=== PATIENT | female | born 1975 | race Caucasian/White ===

== ENCOUNTER 2022-04-04 11:13 | Emergency (ER) | payer OTHER ==
[~2022-04-04] VITALS: Ht 154.9 cm; Wt 65.8 kg
[2022-04-04 11:28] VITALS: BP 110/69
[2022-04-04] MEDS ORDERED: IBUPROFEN 600 MG TABLET ONE (11:55)
[2022-04-04] MEDS ORDERED: IBUPROFEN 600 MG TABLET PO ONE (12:00)
--- NOTE | 2022-04-04 12:02 | NUR ---
MOTRIN 600MG PROVIDED TO PT, TAKEN WELL. PT ALSO REQUESTED FOR CRACKERS AND GIVEN TO PT W/ WATER.
--- NOTE | 2022-04-04 12:15 | NUR ---
X- RAY DONE AT BED SIDE
--- NOTE | 2022-04-04 12:49 | NUR ---
no pain noted
[2022-04-04] MEDS ORDERED: IBUP-1955 PO (13:29)
--- NOTE | 2022-04-04 13:30 | NUR ---
d/c instraction given to pt fully and verblzed uncdestood no swallen on rt ankle
== END 2022-04-04 13:41 | disposition home or self-care (01) ==
LOC: ER 11:16
DX: M79.671 Pain in right foot (principal); Z90.89 Acquired absence of other organs; Z98.890 Other specified postprocedural states
CPT/HCPCS: 73610-TC; 73630-TC